=== PATIENT | male | born 1980 | race Caucasian/White ===

== ENCOUNTER → 2019-02-16 | Outpatient (CLI) | payer BC ==
--- NOTE | 2019-02-16 16:12 | KCIC ---
Indication: Chronic kidney disease stage II TECHNIQUE: Ultrasound kidneys COMPARISON: None FINDINGS: The right kidney measures 11.4 x 4.3 x 5.4 cm without hydronephrosis. IVC is within normal limits. Proximal aorta within normal limits. Mid and distal aortic segments are not visualized due to overlying bowel gas. Visualized bladder is within normal limits. Bilateral ureteral jets are seen. Left kidney measures 11.6 x 4.9 x 4.5 cm without hydronephrosis. There is no thinning of the cortex. IMPRESSION: No hydronephrosis. No abnormal findings. Electronically signed by: Derek Enriquez DO (02/16/2019 4:10 PM) [facility]
== END | disposition home or self-care (01) ==
LOC: KCIC US 15:24
PROVIDERS: ATTEND Internal Medicine Nephrology
DX: N18.2 Chronic kidney disease, stage 2 (mild) (principal)
CPT/HCPCS: 76770